=== PATIENT | male | born 1975 | race Hispanic/Latino ===

== ENCOUNTER 2017-04-08 20:30 | Emergency (ER) | payer OTHER ==
[2017-04-08 20:34] VITALS: BMI 37.2
[2017-04-08 20:39] VITALS: TEMP 98.5
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
[2017-04-08 22:28] VITALS: BP 140/80; PULSE 73; RESP 14; O2SAT 98
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
== END 2017-04-08 22:28 | disposition home or self-care (01) ==
LOC: ED 20:30
DX: S83.91XA Sprain of unspecified site of right knee, initial encounter (principal); S53.402A Unspecified sprain of left elbow, initial encounter; Y04.0XXA Assault by unarmed brawl or fight, initial encounter; Y92.009 Unspecified place in unspecified non-institutional (private) residence as the place of occurrence of the external cause

== ENCOUNTER 2018-10-03 21:57 | Emergency (ER) | payer OTHER, BC ==
[2018-10-03 21:58] VITALS: BMI 37.2
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
[2018-10-03 23:42] VITALS: RESP 18; TEMP 98.1
[2018-10-04 00:02] LABS: BASO # 0.07 K/mm3 (0.0-2.0); BASO % 0.7 % (0.0-3.0); EOS # 0.2 (0.0-0.7); EOS % 1.9 % (1.5-5.0); GRAN # 6.15 (1.4-6.5); GRAN % 63.7 % (50.0-68.0); HEMOGLOBIN 16.2 g/dL (14.0-18.0); LYMPH # 2.8 (1.2-3.4); LYMPH % 28.5 % (22.0-35.0); MEAN CELL VOLUME 85.8 fl (80.0-105.0); MEAN CORPUSCULAR HEMOGLOBIN 29.9 pg (25.0-35.0); MEAN CORPUSCULAR HGB CONC 34.8 g/dl (31.0-37.0); MEAN PLATELET VOLUME 10.8 fl (7.0-11.0); MONO # 0.5 (0.1-0.6); MONO % 5.2 % (1.0-6.0); RBC 5.42 10^6/uL (3.5-6.1); RED CELL DISTRIBUTION WIDTH 13.1 % (11.5-14.5); WHITE BLOOD COUNT 9.7 10^3/uL (4.5-11.0)
[2018-10-04 00:06] LABS: ALB/GLOB RATIO 1.4 (1.1-1.8); ALBUMIN 4.9 g/dL (3.0-4.8); ALT/SGPT 30 U/L (7-56); AMYLASE 51 U/L (35-125); AST/SGOT 59 U/L (17-59); BLOOD UREA NITROGEN 21 mg/dL (7-21); CALCIUM 10.3 mg/dL (8.4-10.5); GFR NON-AFRICAN AMERICAN > 60
[2018-10-04 00:28] VITALS: BP 127/82; PULSE 68; O2SAT 99
[2018-10-04 12:35] LABS: HEPATITIS B SURFACE AG Negative (NEGATIVE)
[2018-10-04 12:40] LABS: HEPATITIS A IGM NEGATIVE (NEGATIVE); HEPATITIS B CORE AB NEGATIVE (NEGATIVE)
[2018-10-04 12:52] LABS: HEPATITIS C ANTIBODY NEGATIVE (NEGATIVE)
== END 2018-10-04 00:10 | disposition home or self-care (01) ==
LOC: ED 21:57
DX: Z77.21 Contact with and (suspected) exposure to potentially hazardous body fluids (principal)